=== PATIENT | female | born 1945 | race Caucasian/White ===

== ENCOUNTER 2016-04-05 08:16 | Outpatient (CLI) | payer MEDICARE, OTHER | END 2016-04-05 08:17 | disposition home or self-care (01) | DX: Z12.31 Encounter for screening mammogram for malignant neoplasm of breast (principal); R92.8 Other abnormal and inconclusive findings on diagnostic imaging of breast ==

== ENCOUNTER 2016-05-12 09:19 | Outpatient (CLI) | payer MEDICARE, OTHER | END 2016-05-12 09:20 | disposition home or self-care (01) | DX: N63 Unspecified lump in breast (principal) | CPT/HCPCS: 76642; G0206 ==

== ENCOUNTER 2016-06-05 09:27 | Outpatient (CLI) | payer MEDICARE, OTHER ==
[2016-06-05] MEDS ORDERED: BUPIVACAINE 0.5%-EPI 1:200000 PF 30 ML VIAL SUBQ ONE (10:57)
[2016-06-05] MEDS ORDERED: BUFFERED LIDOCAINE 10 ML SYRINGE IU ONE (10:57)
== END 2016-06-05 09:28 | disposition home or self-care (01) ==
DX: N60.02 Solitary cyst of left breast (principal)
CPT/HCPCS: 19083; 88305; G0206

== ENCOUNTER 2017-02-22 16:04 | Outpatient (CLI) | payer MEDICARE, OTHER | END 2017-02-22 16:05 | LOC: LAB.R 16:04 | PROVIDERS: ATTEND Internal Medicine | DX: B34.9 Viral infection, unspecified (principal) | CPT/HCPCS: 87275; 87276 ==

== ENCOUNTER 2018-04-12 08:20 | Outpatient (CLI) | payer MEDICARE, OTHER ==
[2018-04-12 14:03] LABS: BASOPHILS % (AUTO) 0.8 %; EOSINOPHILS # (AUTO) 0.6 10^3/uL (0.0-0.7); EOSINOPHILS % (AUTO) 11.1 %; HGB - HEMOGLOBIN 13.7 g/dL (12.0-16.0); LYMPHOCYTES # (AUTO) 1.6 10^3/uL (1.5-3.5); LYMPHOCYTES % (AUTO) 27.4 %; MEAN CORPUSCULAR HEMOGLOBIN 31.2 pg (27.0-31.0); MEAN CORPUSCULAR VOLUME 94.7 fL (81.0-99.0); MEAN PLATELET VOLUME 9.5 fL (7.9-10.8); MONOCYTES # (AUTO) 0.7 10^3/uL (0.0-1.0); MONOCYTES % (AUTO) 11.5 %; NEUTROPHILS # (AUTO) 2.8 10^3/uL (1.5-6.6); NEUTROPHILS % (AUTO) 49.2 %; PLT - PLATELET COUNT 309 10^3/uL (130-450); RED BLOOD COUNT 4.39 10^6/uL (4.20-5.40); RED CELL DISTRIBUTION WIDTH 13.4 % (12.0-15.0); WHITE BLOOD COUNT 5.7 x10^3/uL (4.8-10.8)
[2018-04-12 14:04] LABS: ALBUMIN 4.3 g/dL (3.2-5.5); ALBUMIN/GLOBULIN RATIO 1.3 (1.0-2.2); BILIRUBIN,TOTAL 1.1 mg/dL (0.2-1.0); CALCIUM 9.5 mg/dL (8.5-10.3); TOTAL PROTEIN 7.6 g/dL (6.7-8.2)
== END 2018-04-12 23:59 | disposition home or self-care (01) ==
LOC: LAB.R 08:20
PROVIDERS: ATTEND Physician Assistant Medical
DX: Z79.899 Other long term (current) drug therapy (principal); J30.2 Other seasonal allergic rhinitis; J45.909 Unspecified asthma, uncomplicated
CPT/HCPCS: 80053; 82306; 84443; 85025

== ENCOUNTER 2018-05-18 08:15 | Outpatient (CLI) | payer MEDICARE, OTHER ==
--- NOTE | 2018-05-20 09:21 | Mammography Report ---
Reason: SCREENING MAMMO Procedure Date: 05/18/2018 Accession Number: [id number] / [id number] Procedure: [facility] - Screening Mammo w/Rafael CPT Code: FULL RESULT: EXAM: Screening Mammo w/Rafael DATE: 05/18/2018 8:47 AM CLINICAL HISTORY: Routine screening. No reported personal or family history of breast cancer. TECHNIQUE: (B) - Bilateral Bilateral CC and MLO views were obtained. COMPARISON: 06/05/2016 through 04/05/2016 FINDINGS: Bilateral breasts: No suspicious masses, clustered microcalcifications, or regions of architectural distortion are identified. Stable biopsy marker noted in the lower inner left breast. PARENCHYMAL PATTERN: (A) - The breasts demonstrate scattered fibroglandular densities bilaterally. IMPRESSION: Benign findings RECOMMENDATION: (ANNUAL) - Recommend routine annual screening mammography. BI-RADS CATEGORY: (2) -Benign Findings STANDARD QUALIFYING STATEMENTS: 1. This examination was not reviewed with the aid of Computer-Aided Detection (CAD). 2. A negative or benign imaging report should not preclude biopsy if clinically suspicious findings are present. 3. Dense breasts may obscure an underlying neoplasm. 4. This examination wasreviewed with the aid of 3D breast imaging (tomosynthesis).
== END 2018-05-18 08:16 | disposition home or self-care (01) ==
LOC: DI 08:15
DX: Z12.31 Encounter for screening mammogram for malignant neoplasm of breast (principal)
CPT/HCPCS: 77063; 77067

== ENCOUNTER 2020-01-08 15:15 | Outpatient (CLI) | payer MEDICARE, OTHER ==
--- NOTE | 2020-01-08 16:50 | DEXA Report ---
PROCEDURE: Dexa Spine and/or Hip INDICATIONS: POSTMENOPAUSAL TECHNIQUE: Dual energy x-ray absorptiometry (DXA) was performed on a SNAPP' System. Regions measur ed are the AP Spine, femoral neck, and if needed forearm. COMPARISON: None. FINDINGS: Lumbar Spine: Bone Mineral Density 1.225 g/cm/cm,T score 0.4, normal Left Femoral Neck: Bone Mineral Density 0.786 g/cm/cm, T score -1.8, osteopenia (T score greater or equal to -1.0: NORMAL) (T score from -1.1 to -2.4: OSTEOPENIA) (T score less than or equal to -2.5 to: OSTEOPOROSIS) Impression: Osteopenia. Patient is at increased risk for fracture. Patients with diagnosis of osteoporosis or osteopenia should have regular bone mineral density assess ment. For those eligible for Medicare, routine testing is allowed once every 2 years. Testing frequ ency can be increased for patients who have rapidly progressing disease or for those who are receivin g medical therapy to restore bone mass. Reviewed by: Maurisio Pratt MD on 01/08/2020 4:49 PM PST Approved by: Maurisio Pratt MD on 01/08/2020 4:49 PM PST Station ID: [id number]
== END 2020-01-08 15:16 | disposition home or self-care (01) ==
LOC: DI 15:15
PROVIDERS: ATTEND Family Medicine
DX: M85.89 Other specified disorders of bone density and structure, multiple sites (principal); Z78.0 Asymptomatic menopausal state
CPT/HCPCS: 77080